=== PATIENT | male | born 1995 | race Caucasian/White ===

== ENCOUNTER 2018-04-04 11:36 | Emergency (ER) | payer BC, SELFPAY ==
[2018-04-04 11:40] VITALS: BP 122/74; PULSE 70; RESP 12; TEMP 37.4; O2SAT 97
--- NOTE | 2018-04-04 11:56 | W.ED.GENAD ---
Discharge Plan Disposition Patient Disposition: HOME Condition: Fair Discharge Details Chief Complaint: Sorethroat Clinical Impression: Acute upper respiratory infection, Acute pharyngitis Primary Care Provider: Maco Rendon ED Provider: Yareli Sung Discharge Instructions Instructions: Pharyngitis (ED), Upper Respiratory Infection (ED) Additional Instructions: Encourage hydration. Tylenol and/or Motrin as needed for discomfort. Warm water and honey can help to soothe your throat. Please call [facility] to schedule appointment for reevaluation next week. [phone] . If you develop new/worsening symptoms please seek care urgently once again. Medical Decision Making Patient is a 22-year-old male presenting today with chief complaint of sore throat. He reports that he began noting bilateral ear discomfort, sore throat, sinus discomfort, cough and neck stiffness 2 days ago. On exam, patient's oropharynx is mildly erythematous with tonsillar swelling and white exudate. Rapid strep testing was performed by nursing staff and found to be negative. Patient is afebrile and appears nontoxic. He reports that overall he is feeling much improved. However, he was advised by his mother to be evaluated given his 2 days of persistent symptoms. Patient was complaining of neck stiffness. He indicates the anterior aspect of his neck where there is palpable lymphadenopathy is area of discomfort. No meningeal signs, no nuchal rigidity. No rashes noted. Patient is endorsing cough, reports that this is nonproductive. Patient is clear in all lung herrera with no wheezes rales or rhonchi. Advised that his illness is likely viral in nature. His rapid strep testing was sent for laboratory confirmation. We will contact him with any positive results. I advised him new/worsening symptoms when to seek care urgently once again. Patient is a [employer] student, I have asked that he follow-up with them next week for reevaluation of symptoms have not completely improved. All his questions and concerns were addressed and he is in agreement with this plan. HPI General Mode of arrival: ambulatory. Date/Time Provider Initiated Documentation: 04/04/18 11:43. Limitations to Documentation: no limitations. Information obtained by: patient. History of Present Illness 22 year old M presents to the emergency department with the chief complaint of sore throat, described as mild, with intensity rated at 2. Quality is described as aching, and is localized to the neck. Patient reports no radiation. Patient started experiencing this day(s) (2) and it has been constant. No relieving factors improve symptom(s), No exacerbating factors reported . Patient notes cough and other (ear pain, sinus pressure, neck pain); denies chest pain, fever/chills, headaches, loss of appetite, nausea/vomiting, rash and shortness of breath. Patient did receive the following treatments prior to arrival, none Related Data Allergies Allergy/AdvReac Type Severity Reaction Status Date / Time Penicillins Allergy Mild Skin Rash Unverified 04/04/18 11:43 General Stated Complaint: Sorethroat ZEKE: 4 Review of Systems Constitutional Denies chills, Reports fatigue, Denies fever(s), Denies headache(s) and Denies poor appetite Eyes Denies eye discharge and Denies irritation ENT Denies dysphagia, Denies vertigo, Denies ear discharge, Reports otalgia, Denies headache(s), Denies hoarseness, Denies mouth lesions, Reports nasal congestion, Reports nasal discharge, Reports neck pain (endorsing anterior bilateral neck pain and stiffness), Denies odynophagia, Reports sinus pain, Reports sinus pressure, Reports sore throat and Denies throat swelling Cardiovascular Denies chest pain Respiratory Reports chest congestion and Reports cough Gastrointestinal Denies dysphagia and Denies odynophagia Musculoskeletal Reports neck pain (endorsing anterior bilateral neck pain and stiffness) Neurologic Denies vertigo and Denies headache(s) Endocrine Reports fatigue Allergic/Immunologic Denies throat swelling Exam Const General: cooperative, healthy appearing, comfortable, no acute distress, well developed, well groomed and acute distress Nutritional Appearance: average body habitus and well nourished Orientation: alert and awake [facility] Head: normal to inspection and normocephalic Ears: hearing grossly normal bilaterally, external ears normal, TM's abnormal bilaterally (left difficult to visualize secondary to cerumen impaction. ) and TM normal on the right General nose exam: external nose normal Face and sinus: sinus tenderness frontal (bialteral); not maxillary Mouth: oral mucosae normal, lip normal and tongue normal Teeth and gingiva: dentition normal Throat: uvula midline, abnormal tonsil bilaterally erythema and exudates and no peritonsillar masses Eyes General: appearance normal, both eyes and all related structures Neck Neck: full ROM, no meningeal signs, trachea midline and lymphadenopathy Resp Effort & Inspection: normal respiratory effort, able to speak in complete sentences and no respiratory distress Auscultation: clear to auscultation bilaterally, no rales, no rhonchi and no wheezes Cardio Rate: regular rate Rhythm: regular rhythm Heart Sounds: S1 normal and S2 normal GI Inspection: normal to inspection, no abdominal wall ecchymosis and non-distended Palpation: soft, not firm, no guarding, no hepatosplenomegaly, no hernias and nontender Skin General skin exam: no rashes or lesions noted Neuro General: alert Cognition: normal cognition Speech: speech normal Gait: normal gait Psych Appearance: grossly normal and well kempt Mental Status: mental status grossly normal Speech and Movement: speech and movement normal Mood: congruent mood Course Vital Signs Temperature 37.4 C 04/04/18 11:40 Pulse 70 04/04/18 11:40 Respiratory Rate 12 04/04/18 11:40 Blood Pressure 122/74 04/04/18 11:40 Pulse Oximetry 97 04/04/18 11:40 Temperature 37.4 C 04/04/18 11:40 Temperature Source Temporal Artery Scan 04/04/18 11:40 Pulse 70 04/04/18 11:40 Respiratory Rate 12 04/04/18 11:40 Respiratory Effort Non-Labored 04/04/18 11:42 Blood Pressure 122/74 04/04/18 11:40 Pulse Oximetry 97 04/04/18 11:40 Oxygen Delivery Method Room Air 04/04/18 11:40 Oxygen Flow Rate 0 04/04/18 11:40 Pain Level 2 04/04/18 11:40 Lab/Test Results Lab/Test Results: 04/04/18 11:45 Tonsil - Not Specified Streptococcus Screen ([place]) - Pending POC Strep Test-LARISA(Rapid) Start: 04/04/18 11:43 Freq: Status: Active Protocol: Document 04/04/18 11:49 TB (Rec: 04/04/18 11:49 TB [id number]) Strep test-LARISA(Rapid)-POC POC-Strep test-LARISA (Rapid) Negative POC-Strep test-LARISA (Rapid) Negative
--- NOTE | 2018-04-04 12:06 | ED.GENADUL_ITS ---
Discharge Plan Disposition Patient Disposition: HOME Condition: Fair Discharge Details Chief Complaint: Sorethroat Clinical Impression: Acute upper respiratory infection, Acute pharyngitis Primary Care Provider: Maco Rendon ED Provider: Yareli Sung Discharge Instructions Instructions: Pharyngitis (ED), Upper Respiratory Infection (ED) Additional Instructions: Encourage hydration. Tylenol and/or Motrin as needed for discomfort. Warm water and honey can help to soothe your throat. Please call [facility] to schedule appointment for reevaluation next week. [phone] . If you develop new/worsening symptoms please seek care urgently once again. Medical Decision Making Patient is a 22-year-old male presenting today with chief complaint of sore throat. He reports that he began noting bilateral ear discomfort, sore throat, sinus discomfort, cough and neck stiffness 2 days ago. On exam, patient's oropharynx is mildly erythematous with tonsillar swelling and white exudate. Rapid strep testing was performed by nursing staff and found to be negative. Patient is afebrile and appears nontoxic. He reports that overall he is feeling much improved. However, he was advised by his mother to be evaluated given his 2 days of persistent symptoms. Patient was complaining of neck stiffness. He indicates the anterior aspect of his neck where there is palpable lymphadenopathy is area of discomfort. No meningeal signs, no nuchal rigidity. No rashes noted. Patient is endorsing cough, reports that this is nonproductive. Patient is clear in all lung herrera with no wheezes rales or rhonchi. Advised that his illness is likely viral in nature. His rapid strep testing was sent for laboratory confirmation. We will contact him with any positive results. I advised him new/worsening symptoms when to seek care urgently once again. Patient is a [employer] student, I have asked that he follow-up with them next week for reevaluation of symptoms have not completely improved. All his questions and concerns were addressed and he is in agreement with this plan. HPI General Mode of arrival: ambulatory . Date/Time Provider Initiated Documentation: 04/04/18 11:43 . Limitations to Documentation: no limitations . Information obtained by: patient . History of Present Illness 22 year old M presents to the emergency department with the chief complaint of sore throat, described as mild, with intensity rated at 2. Quality is described as aching, and is localized to the neck. Patient reports no radiation. Patient started experiencing this day(s) (2) and it has been constant. No relieving factors improve symptom(s), No exacerbating factors reported . Patient notes cough and other (ear pain, sinus pressure, neck pain) ; denies chest pain, fever/chills, headaches, loss of appetite, nausea/vomiting , rash and shortness of breath. Patient did receive the following treatments prior to arrival, none Related Data Allergies Allergy/AdvReac Type Severity Reaction Status Date / Time Penicillins Allergy Mild Skin Rash Unverified 04/04/18 11:43 General Stated Complaint: Sorethroat ZEKE: 4 Review of Systems Constitutional Denies chills, Reports fatigue, Denies fever(s), Denies headache(s) and Denies poor appetite Eyes Denies eye discharge and Denies irritation ENT Denies dysphagia, Denies vertigo, Denies ear discharge, Reports otalgia, Denies headache(s), Denies hoarseness, Denies mouth lesions, Reports nasal congestion, Reports nasal discharge, Reports neck pain (endorsing anterior bilateral neck pain and stiffness), Denies odynophagia, Reports sinus pain, Reports sinus pressure, Reports sore throat and Denies throat swelling Cardiovascular Denies chest pain Respiratory Reports chest congestion and Reports cough Gastrointestinal Denies dysphagia and Denies odynophagia Musculoskeletal Reports neck pain (endorsing anterior bilateral neck pain and stiffness) Neurologic Denies vertigo and Denies headache(s) Endocrine Reports fatigue Allergic/Immunologic Denies throat swelling Exam Const General: cooperative, healthy appearing, comfortable, no acute distress, well developed, well groomed and acute distress Nutritional Appearance: average body habitus and well nourished Orientation: alert and awake [facility] Head: normal to inspection and normocephalic Ears: hearing grossly normal bilaterally, external ears normal, TM's abnormal bilaterally (left difficult to visualize secondary to cerumen impaction. ) and TM normal on the right General nose exam: external nose normal Face and sinus: sinus tenderness frontal (bialteral); not maxillary Mouth: oral mucosae normal, lip normal and tongue normal Teeth and gingiva: dentition normal Throat: uvula midline, abnormal tonsil bilaterally erythema and exudates and no peritonsillar masses Eyes General: appearance normal, both eyes and all related structures Neck Neck: full ROM, no meningeal signs, trachea midline and lymphadenopathy Resp Effort & Inspection: normal respiratory effort, able to speak in complete sentences and no respiratory distress Auscultation: clear to auscultation bilaterally, no rales, no rhonchi and no wheezes Cardio Rate: regular rate Rhythm: regular rhythm Heart Sounds: S1 normal and S2 normal GI Inspection: normal to inspection, no abdominal wall ecchymosis and non-distended Palpation: soft, not firm, no guarding, no hepatosplenomegaly, no hernias and nontender Skin General skin exam: no rashes or lesions noted Neuro General: alert Cognition: normal cognition Speech: speech normal Gait: normal gait Psych Appearance: grossly normal and well kempt Mental Status: mental status grossly normal Speech and Movement: speech and movement normal Mood: congruent mood Course Vital Signs Temperature 37.4 C 04/04/18 11:40 Pulse 70 04/04/18 11:40 Respiratory Rate 12 04/04/18 11:40 Blood Pressure 122/74 04/04/18 11:40 Pulse Oximetry 97 04/04/18 11:40 Temperature 37.4 C 04/04/18 11:40 Temperature Source Temporal Artery Scan 04/04/18 11:40 Pulse 70 04/04/18 11:40 Respiratory Rate 12 04/04/18 11:40 Respiratory Effort Non-Labored 04/04/18 11:42 Blood Pressure 122/74 04/04/18 11:40 Pulse Oximetry 97 04/04/18 11:40 Oxygen Delivery Method Room Air 04/04/18 11:40 Oxygen Flow Rate 0 04/04/18 11:40 Pain Level 2 04/04/18 11:40 Lab/Test Results Lab/Test Results: 04/04/18 11:45 Tonsil - Not Specified Streptococcus Screen ([place]) - Pending POC Strep Test-LARISA(Rapid) Start: 04/04/18 11: 43 Freq: Status: Active Protocol: Document 04/04/18 11:49 TB (Rec: 04/04/18 11:49 TB [id number]) Strep test-LARISA(Rapid)-POC POC-Strep test-LARISA (Rapid) Negative POC-Strep test-LARISA (Rapid) Negative
== END 2018-04-04 12:03 | disposition home or self-care (01) ==
LOC: ER 12:05
PROVIDERS: Emergency Provider Physician Assistant; PCP Behavioral Pediatrics
DX: J06.9 Acute upper respiratory infection, unspecified (principal); J02.9 Acute pharyngitis, unspecified; R59.0 Localized enlarged lymph nodes
CPT/HCPCS: 87880; 99282; 87081

== ENCOUNTER 2018-10-12 00:47 | Outpatient (CLI) | payer BC, SELFPAY ==
--- NOTE | 2018-10-12 14:33 | DI.MRI_ITS ---
SYMPTOMS/DIAGNOSIS: TENDERNESS, ? MEDIAL MENISCUS TEAR/PARTIAL AC TEAR LEFT KNEE MRI: MRI examination of the knee was performed according to the usual protocol. There is moderate sized knee joint effusion. There is abnormal signal in the lateral femoral condyle particularly anteriorly and minimally increased signal also noted in medial femoral condyle peripherally. The possibility of a small impaction fracture of the lateral femoral condyle not excluded as there is some question of slight cortical irregularity at this site. The extensor mechanism appears intact. The anterior cruciate ligament is significantly thickened and shows abnormal signal raising the possibility of mucoid degeneration vs partial tear or strain. Posterior cruciate appears intact. Lateral meniscus appears to be discoid and may be torn. No displaced tear seen. Medial meniscus appears intact. Mildly increased signal noted in medial collateral ligament. Lateral collateral ligament complex also shows mildly increased signal. CONCLUSION: Knee joint effusion, discoid lateral meniscus with a probable nondisplaced tear, abnormal appearance of ACL, mucoid degeneration vs partial tear/strain.
== END 2018-10-12 01:07 ==
PROVIDERS: PCP Behavioral Pediatrics; Visit Provider Orthopaedic Surgery
DX: M25.562 Pain in left knee (principal); M25.462 Effusion, left knee; M23.362 Other meniscus derangements, other lateral meniscus, left knee
CPT/HCPCS: 73721